=== PATIENT | male | born 1985 | race Native Hawaiian/Other Pacific Islander ===

== ENCOUNTER 2017-02-01 12:39 | Emergency (ER) | payer BC ==
[~2017-02-01] VITALS: Ht 185.4 cm; Wt 90.7 kg
[2017-02-01 14:52] LABS: POTASSIUM 4.2 mmol/L (3.6-5.2); SODIUM 136 mmol/L (136-145)
[2017-02-01 15:00] LABS: PLATELET COUNT 240 K/uL (142-355)
[2017-02-01 17:35] VITALS: BP 118/72; TEMP 98.3
== END 2017-02-01 17:40 | disposition home or self-care (01) ==
LOC: ED 12:39
PROVIDERS: Emergency Medicine
DX: K57.92 Diverticulitis of intestine, part unspecified, without perforation or abscess without bleeding (principal)
CPT/HCPCS: 36415; 80053; 81000; 82150; 83690; 85027; 96374; 96375; 99284; J1885; J2270; J2405; Q9963

== ENCOUNTER 2018-11-20 21:19 | Emergency (ER) | payer BC ==
[~2018-11-20] VITALS: Ht 180.3 cm; Wt 99.8 kg
[2018-11-21 00:12] LABS: PLATELET COUNT 223 K/uL (142-355)
[2018-11-21 00:28] LABS: POTASSIUM 4.4 mmol/L (3.6-5.2)
[2018-11-21 03:24] VITALS: BP 110/67; TEMP 97.6
== END 2018-11-21 03:26 | disposition home or self-care (01) ==
LOC: ED 21:19
PROVIDERS: Internal Medicine
DX: R10.30 Lower abdominal pain, unspecified (principal); D72.829 Elevated white blood cell count, unspecified
CPT/HCPCS: 36415; 80053; 81000; 85027; 96374; 96375; 99284; J2270; J2405; Q9963

== ENCOUNTER 2018-12-03 17:04 | Emergency (ER) | payer BC ==
[~2018-12-03] VITALS: Ht 180.3 cm; Wt 99.8 kg
[2018-12-03 18:25] LABS: PLATELET COUNT 211 K/uL (142-355)
[2018-12-03 18:39] LABS: POTASSIUM 4.2 mmol/L (3.6-5.2)
[2018-12-03 20:14] VITALS: BP 111/50; TEMP 98.7
== END 2018-12-03 20:18 | disposition home or self-care (01) ==
LOC: ED 17:04
PROVIDERS: Emergency Medicine
DX: R10.9 Unspecified abdominal pain (principal); K59.00 Constipation, unspecified; E86.0 Dehydration
CPT/HCPCS: 36415; 74022; 80053; 81000; 82150; 83690; 85027; 86318; 99283